=== PATIENT | female | born 1975 | race Two or more races ===

== ENCOUNTER 2019-04-08 22:18 | Emergency (ER) | payer SELFPAY ==
[~2019-04-08] VITALS: Ht 177.8 cm; Wt 73.5 kg
--- NOTE | 2019-04-08 22:36 | NUR ---
PT BIBSELF C/O L BREAST LUMP AND +N/V X 1 WEEK. PER PATIENT "IT LOOKS LIKE A SMALL EGG." BREATHING EVEN AND UNLABORED. PT [id number].
[2019-04-09] MEDS ORDERED: ONDANSETRON 4 MG TAB.RAPDIS ONE (00:32)
[2019-04-09] MEDS: ONDANSETRON 4 MG TAB.RAPDIS SL ONE (00:35)
--- NOTE | 2019-04-09 02:00 | NUR ---
Patient discharged to home in stable condition. Written and verbal after care instructions given. Patient verbalizes understanding of instruction. PT ambulatory with a steady gait.
[2019-04-09 03:10] VITALS: BP 128/86
== END 2019-04-09 02:00 | disposition home or self-care (01) ==
LOC: ER 22:21
DX: N63.20 Unspecified lump in the left breast, unspecified quadrant (principal); R11.2 Nausea with vomiting, unspecified; M79.7 Fibromyalgia
CPT/HCPCS: 99283; Q0162